=== PATIENT | male | born 1990 | race Caucasian/White ===

== ENCOUNTER 2022-06-14 09:21 | Emergency (ER) | payer SELFPAY ==
[~2022-06-14] VITALS: Ht 182.9 cm; Wt 84.1 kg
[2022-06-14 09:30] VITALS: BP 143/77; TEMP 98
[2022-06-14 10:07] LABS: COLLECTION METHOD CLEAN CATCH
[2022-06-14 10:19] LABS: SQUAMOUS EPITHELIAL 0-2 /hpf (0-10); URINE BACTERIA None Seen /hpf (NONE SEEN); URINE RBC 0-2 /hpf (0-2)
[2022-06-14 10:20] LABS: URINE APPEARANCE Clear (CLEAR/HAZY); URINE COLOR Yellow (YELLOW)
[2022-06-14 10:21] LABS: URINE BLOOD Negative (NEGATIVE); URINE GLUCOSE Negative (NEGATIVE); URINE KETONE Negative (NEGATIVE); URINE NITRATE Negative (NEGATIVE); URINE PROTEIN(semi-quant) Negative (NEGATIVE); URINE UROBILINOGEN 0.2 E.U/dL (0.2-1.0)
[2022-06-14] MEDS ORDERED: PREDNISONE50 MG PO (10:46)
[2022-06-14] MEDS ORDERED: FLEXERIL 1010 MG/TAB PO (10:46)
[2022-06-14] MEDS ORDERED: NORCO 325 MG-51 TAB PO (10:46)
[2022-06-14 11:02] VITALS: PULSE 68
== END 2022-06-14 11:04 | disposition home or self-care (01) ==
LOC: COL.ER 09:21
PROVIDERS: Physician Assistant
DX: M54.17 Radiculopathy, lumbosacral region (principal); Z28.310 Unvaccinated for COVID-19
CPT/HCPCS: J1885